=== PATIENT | male | born 1990 | race Caucasian/White ===

== ENCOUNTER 2021-07-31 10:26 | Emergency (ER) | payer MEDICAID ==
[2021-07-31 11:03] VITALS: RESP 18; TEMP 98
[2021-07-31] MEDS ORDERED: KETOROLAC 15 MG/ML 1 ML VIAL IM STA (11:36)
--- NOTE | 2021-07-31 11:40 | ED ---
General Adult HPI - General Chief complaint: Upper Respiratory Infection Stated complaint: SOB Time Seen by Provider: 07/31/21 11:34 Source: patient, RN notes reviewed, old records reviewed Mode of arrival: ambulatory Limitations: no limitations - History of Present Illness Initial comments: Well-appearing, well-nourished 30-year-old male presents in no acute distress with complaints of chest tightness and shortness of breath since Friday. Patient states that he has been vaping for the past year and a half and recently quit. He states he feels like his lungs are tight and he is having difficulty taking a breath. He denies any fevers or productive cough. He has no medical history. Does not take any medicine on a daily basis. -: days(s) (4) Location: chest Radiation: non-radiation Severity scale (1-10): 0 Quality: other (tightness) Consistency: now resolved Associated Symptoms: chest pain, shortness of breath Treatments Prior to Arrival: none - Related Data Allergies Allergy/AdvReac Type Severity Reaction Status Date / Time amoxicillin Allergy Unknown Verified 07/31/21 11:03 Childhood Review of Systems ROS Statement: Those systems with pertinent positive or pertinent negative responses have been documented in the HPI. ROS Other: All systems not noted in ROS Statement are negative. Past Medical History Past Medical History: No Reported History History of Any Multi-Drug Resistant Organisms: None Reported Past Surgical History: No Surgical Hx Reported Past Psychological History: No Psychological Hx Reported Smoking Status: Vaper Past Alcohol Use History: Occasional Past Drug Use History: None Reported General Exam Limitations: no limitations General appearance: alert, in no apparent distress Head exam: Present: atraumatic, normocephalic, normal inspection Eye exam: Present: normal appearance. Absent: scleral icterus, conjunctival injection ENT exam: Present: normal exam, normal oropharynx, mucous membranes moist Neck exam: Present: normal inspection, full ROM. Absent: tenderness, meningismus, lymphadenopathy, thyromegaly Respiratory exam: Present: normal lung sounds bilaterally. Absent: respiratory distress, wheezes, rales, rhonchi, stridor, chest wall tenderness, accessory muscle use Cardiovascular Exam: Present: regular rate, normal heart sounds. Absent: JVD Extremities exam: Present: full ROM, normal capillary refill. Absent: tenderness, pedal edema Back exam: Absent: tenderness, CVA tenderness (R), CVA tenderness (L) Neurological exam: Present: alert, oriented X3 Psychiatric exam: Present: normal affect, normal mood Skin exam: Present: warm, dry, intact, normal color. Absent: cyanosis, diaphoretic Course Vital Signs 07/31/21 07/31/21 11:00 12:49 Temperature 98 F Pulse Rate 82 65 Respiratory 18 18 Rate Blood Pressure 150/97 139/81 O2 Sat by Pulse 100 99 Oximetry EKG Findings - EKG Results: EKG: sinus rhythm EKG shows: bradycardia (Ventricular rate 58, MD interval 0.149, QRS 0.98, QTc 0.384) Medical Decision Making - Medical Decision Making 30-year-old male presents with complaints of chest tightness and shortness of breath since Friday. Recently quit vaping after a year and a half. Lungs are clear to auscultation, oxygen saturation is 100% on room air. Patient is afebrile. Chest x-ray shows no pleural effusion or lobar pneumonia. Coronavirus swab negative. Patient was given a shot of Toradol. I discussed with the patient that this may be either viral in nature versus pleuritic chest pain. I encouraged him to take nonsteroidal anti-inflammatories like Motrin or aspirin, increase his fluid intake. Patient will be discharged home to follow up with his primary care doctor. 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 - Lab Data Lab Results 07/31/21 Range/Units 11:42 Coronavirus (PCR) Not Detected (Not Detectd) Disposition Clinical Impression: Shortness of breath, Pleuritic chest pain Disposition: HOME SELF-CARE Condition: Good Instructions (If sedation given, give patient instructions): Shortness of Breath (ED) Additional Instructions: Follow-up with the primary care doctor this week and return to the emergency room with a new or concerning symptoms including worsening difficulty breathing, chest pain or fevers. Is patient prescribed a controlled substance at d/c from ED?: No Referrals: None,Stated [Primary Care Provider] - 1-2 days Time of Disposition: 12:33
--- NOTE | 2021-07-31 12:01 | XR ---
EXAMINATION TYPE: XR chest 2V DATE OF EXAM: 07/31/2021 COMPARISON: None available HISTORY: 30-year-old male, chest pain TECHNIQUE: Frontal and lateral views of the chest are obtained. FINDINGS: Unremarkable lungs. No pleural effusion or pneumothorax. No cardiomegaly. Unremarkable bony thoracic cage. IMPRESSION: No significant abnormality identified.
[2021-07-31 12:50] VITALS: BP 139/81; PULSE 65
== END 2021-07-31 12:49 | disposition home or self-care (01) ==
LOC: EC 10:26
DX: R07.81 Pleurodynia (principal); F17.290 Nicotine dependence, other tobacco product, uncomplicated; Z88.0 Allergy status to penicillin; Z20.822 Contact with and (suspected) exposure to COVID-19
CPT/HCPCS: 99285; 96372; 93005; 87635; 71046; J1885